=== PATIENT | female | born 1980 | race Caucasian/White ===

== ENCOUNTER 2020-12-30 12:22 | Observation (INO) | payer OTHER ==
[2020-12-30] MEDS ORDERED: NITROGLYCERIN OINT 1 INCH/GM PACKET TOPICAL STA (12:30)
[2020-12-30] MEDS ORDERED: SODIUM CHLORIDE 0.9% 500 ML 500 ML IV STA (12:30)
[2020-12-30] MEDS ORDERED: ASPIRIN 81 MG PO STA (12:30)
--- NOTE | 2020-12-30 12:45 | ED ---
General Adult HPI - General Stated complaint: chest pain Time Seen by Provider: 12/30/20 12:25 Source: patient, RN notes reviewed, old records reviewed - History of Present Illness Initial comments: This is a 40-year-old transgender female who presents emergency Department with a complaint of chest pain. Patient states his past history is positive for 3 heart attacks a passout and high blood pressure. Patient also has depression and anxiety and PTSD. Patient states the pain started a few hours ago and it radiates to his arm. Patient also states she somewhat short of breath. Patient states the pain started in the center of his chest and got better and then it's worse again. Patient denies any diaphoretic episode. Patient's headache patient denies numbness weakness per patient's abdominal pain. - Related Data Allergies Allergy/AdvReac Type Severity Reaction Status Date / Time Penicillins Allergy Unknown Verified 12/30/20 13:51 Childhood Review of Systems ROS Statement: Those systems with pertinent positive or pertinent negative responses have been documented in the HPI. ROS Other: All systems not noted in ROS Statement are negative. General Exam - General Exam Comments Initial Comments: GENERAL: Patient is well-developed and well-nourished. Patient is nontoxic and well- hydrated and is in mild distress. ENT: Neck is soft and supple. No significant lymphadenopathy is noted. Oropharynx is clear. Moist mucous membranes. Neck has full range of motion without eliciting any pain. EYES: The sclera were anicteric and conjunctiva were pink and moist. Extraocular movements were intact and pupils were equal round and reactive to light. Eyelids were unremarkable. PULMONARY: Unlabored respirations. Good breath sounds bilaterally. No audible rales rhonchi or wheezing was noted. CARDIOVASCULAR: There is a regular rate and rhythm without any murmurs gallops or rubs. ABDOMEN: Soft and nontender with normal bowel sounds. SKIN: Skin is clear with no lesions or rashes and otherwise unremarkable. NEUROLOGIC: Patient is alert and oriented x3. Cranial nerves II through XII are grossly intact. Motor and sensory are also intact. Normal speech, volume and content. Symmetrical smile. MUSCULOSKELETAL: Normal extremities with adequate strength and full range of motion. LYMPHATICS: No significant lymphadenopathy is noted PSYCHIATRIC: Normal psychiatric evaluation. Course Vital Signs 12/30/20 12/30/20 12:23 14:00 Temperature 97.6 F Pulse Rate 75 75 Respiratory 16 Rate Blood Pressure 126/80 119/76 O2 Sat by Pulse 97 Oximetry Medical Decision Making - Medical Decision Making EKG shows normal sinus rhythm at 73 bpm NJ interval 146 dresses 90 QT interval 380 QTC is 418. Patient's EKG shows no ST segment elevation or depression. Chest x-ray shows no acute abnormality. [facility] admitted the patient and wrote admitting orders. - Lab Data Result diagrams: 12/30/20 12:44 12/30/20 12:44 Lab Results 12/30/20 12/30/20 12/30/20 Range/Units 12:44 12:44 12:44 WBC 10.5 (3.8-10.6) k/uL RBC 5.01 (3.80-5.40) m/uL Hgb 15.2 (11.4-16.0) gm/dL Hct 44.4 (34.0-46.0) % MCV 88.5 (80.0-100.0) fL MCH 30.4 (25.0-35.0) pg MCHC 34.3 (31.0-37.0) g/dL RDW 12.3 (11.5-15.5) % Plt Count 220 (150-450) k/uL MPV 9.9 Neutrophils % 79 % Lymphocytes % 14 % Monocytes % 5 % Eosinophils % 1 % Basophils % 0 % Neutrophils # 8.2 H (1.3-7.7) k/uL Lymphocytes # 1.4 (1.0-4.8) k/uL Monocytes # 0.6 (0-1.0) k/uL Eosinophils # 0.1 (0-0.7) k/uL Basophils # 0.0 (0-0.2) k/uL PT 10.1 (9.0-12.0) sec INR 0.9 (<1.2) APTT 25.7 (22.0-30.0) sec Sodium 136 L (137-145) mmol/L Potassium 4.5 (3.5-5.1) mmol/L Chloride 105 (98-107) mmol/L Carbon Dioxide 20 L (22-30) mmol/L Anion Gap 11 mmol/L BUN 15 (7-17) mg/dL Creatinine 0.86 (0.52-1.04) mg/dL Est GFR (CKD-EPI)AfAm >90 (>60 ml/min/1.73 sqM) Est GFR (CKD-EPI)NonAf 84 (>60 ml/min/1.73 sqM) Glucose 93 (74-99) mg/dL Calcium 10.0 (8.4-10.2) mg/dL Magnesium 2.0 (1.6-2.3) mg/dL Total Bilirubin 0.6 (0.2-1.3) mg/dL AST 22 (14-36) U/L ALT 20 (4-34) U/L Alkaline Phosphatase 54 (38-126) U/L Troponin I (0.000-0.034) ng/mL Total Protein 7.0 (6.3-8.2) g/dL Albumin 4.1 (3.5-5.0) g/dL 12/30/20 Range/Units 12:44 WBC (3.8-10.6) k/uL RBC (3.80-5.40) m/uL Hgb (11.4-16.0) gm/dL Hct (34.0-46.0) % MCV (80.0-100.0) fL MCH (25.0-35.0) pg MCHC (31.0-37.0) g/dL RDW (11.5-15.5) % Plt Count (150-450) k/uL MPV Neutrophils % % Lymphocytes % % Monocytes % % Eosinophils % % Basophils % % Neutrophils # (1.3-7.7) k/uL Lymphocytes # (1.0-4.8) k/uL Monocytes # (0-1.0) k/uL Eosinophils # (0-0.7) k/uL Basophils # (0-0.2) k/uL PT (9.0-12.0) sec INR (<1.2) APTT (22.0-30.0) sec Sodium (137-145) mmol/L Potassium (3.5-5.1) mmol/L Chloride (98-107) mmol/L Carbon Dioxide (22-30) mmol/L Anion Gap mmol/L BUN (7-17) mg/dL Creatinine (0.52-1.04) mg/dL Est GFR (CKD-EPI)AfAm (>60 ml/min/1.73 sqM) Est GFR (CKD-EPI)NonAf (>60 ml/min/1.73 sqM) Glucose (74-99) mg/dL Calcium (8.4-10.2) mg/dL Magnesium (1.6-2.3) mg/dL Total Bilirubin (0.2-1.3) mg/dL AST (14-36) U/L ALT (4-34) U/L Alkaline Phosphatase (38-126) U/L Troponin I <0.012 (0.000-0.034) ng/mL Total Protein (6.3-8.2) g/dL Albumin (3.5-5.0) g/dL Disposition Clinical Impression: Unstable angina pectoris Disposition: ADMITTED IP TO THIS [facility] Referrals: Nonstaff,Physician [Primary Care Provider] - 1-2 days Time of Disposition: 14:31
[2020-12-30 12:57] LABS: Basophils % (A) 0 %; Eosinophils # (A) 0.1 k/uL (0-0.7); Eosinophils % (A) 1 %; HCT 44.4 % (34.0-46.0); HGB 15.2 gm/dL (11.4-16.0); Lymphocytes # (A) 1.4 k/uL (1.0-4.8); Lymphocytes % (A) 14 %; MCH 30.4 pg (25.0-35.0); MCHC 34.3 g/dL (31.0-37.0); MCV 88.5 fL (80.0-100.0); Mean Platelet Volume 9.9; Monocytes # (A) 0.6 k/uL (0-1.0); Monocytes % (A) 5 %; Neutrophils # (A) 8.2 k/uL (1.3-7.7); Neutrophils % (A) 79 %; Platelet Count 220 k/uL (150-450); RBC 5.01 m/uL (3.80-5.40); RDW 12.3 % (11.5-15.5); WBC 10.5 k/uL (3.8-10.6)
[2020-12-30 13:04] LABS: INR 0.9 (<1.2); Partial Thromboplastin Time 25.7 sec (22.0-30.0); Prothrombin Time 10.1 sec (9.0-12.0)
[2020-12-30 13:16] LABS: ALT 20 U/L (4-34); AST 22 U/L (14-36); African American GFR (CKD) >90 (>60 ml/min/1.73 sqM); Albumin 4.1 g/dL (3.5-5.0); Alkaline Phosphatase 54 U/L (38-126); Anion Gap 11 mmol/L; Blood Urea Nitrogen 15 mg/dL (7-17); Carbon Dioxide 20 mmol/L (22-30); Chloride 105 mmol/L (98-107); Glucose 93 mg/dL (74-99); Non-African American GFR(CKD) 84 (>60 ml/min/1.73 sqM); Potassium 4.5 mmol/L (3.5-5.1); Sodium 136 mmol/L (137-145); Total Bilirubin 0.6 mg/dL (0.2-1.3)
--- NOTE | 2020-12-30 13:43 | XR ---
EXAMINATION TYPE: XR chest 2V DATE OF EXAM: 12/30/2020 COMPARISON: NONE HISTORY: Chest pain and shortness of breath TECHNIQUE: Frontal and lateral views of the chest are obtained. FINDINGS: There is no focal air space opacity, pleural effusion, or pneumothorax seen. The cardiac silhouette size is upper limits of normal. Overlying EKG leads. The osseous structures are intact. IMPRESSION: No acute process.
[2020-12-30] MEDS ORDERED: ACETAMINOPHEN TAB 500 MG TAB PO STA (14:32)
[2020-12-30] MEDS ORDERED: NITROGLYCERIN SL TABS 0.4 MG TAB SUBLINGUAL PRN (14:32)
[2020-12-30] MEDS ORDERED: ACETAMINOPHEN TAB 325 MG TAB PO PRN (19:00)
[2020-12-30] MEDS: NITROGLYCERIN OINT 1 INCH/GM PACKET TOPICAL SCH (19:06)
[2020-12-30] MEDS: SPIRONOLACTONE 25 MG TAB PO SCH (20:59)
[2020-12-30] MEDS ORDERED: traZODone HCL 100 MG TAB PO SCH (21:00)
[2020-12-30] MEDS ORDERED: PANTOPRAZOLE 40 MG TABLET PO SCH (21:00)
[2020-12-30] MEDS ORDERED: PRAZOSIN 1 MG CAP PO SCH (21:00)
[2020-12-31] MEDS: NITROGLYCERIN OINT 1 INCH/GM PACKET TOPICAL SCH ×2 (00:04→06:20)
--- NOTE | 2020-12-31 01:22 | P.HPIM ---
History of Present Illness H&P Date: 12/30/20 Chief Complaint: Chest Pain Patient is a 40-year-old female with a known history of hypertension, history of KS x2, prior history of cardiac catheterization with nonobstructive CAD, was told coronary vasospasm, ADD/ADHD, anxiety/depression and PTSD and marijuana use presents to ER with complaints of chest pain. Patient states that she developed chest pain mainly in the mid retrosternal and epigastric region and felt very nauseated. Patient states her pain was radiating to her left arm associate with nausea. Patient felt very weak and leaned onto the floor. She developed chest pain again and states that she passed out for few seconds and also felt very diaphoretic.. She called her girlfriend and was brought to the ER. Denied any numbness or tingling. No focal weakness. No headache or dizziness or lightheadedness. No diarrhea. No fever no chills. No cough or sputum production. Denies any recent illnesses. Patient states that her pain is different from her heartburn and felt like previous heart attack. Chest x-ray showed no acute process. EKG showed normal sinus rhythm with no ST-T wave changes. Laboratory showed WBC 10.5 hemoglobin 15.1 platelets 220 Sodium 136 potassium 4.5 chloride 105 bicarb is 20 BUN 15 and creatinine 0.86 Troponin 0 0.012, liver enzymes are not elevated Review of Systems Constitutional: Patient denies any fever or chills . No generalized weakness or weight loss. Abdomen: Patient denied nausea vomiting and diarrhea and abdominal pain. Cardiovascular: Patient denies any chest pain or short of breath no palpitations. Respiratory: patient denied any cough or sputum production. No shortness of breath Neurologic: Patient denied any numbness or tingling headache. Musculoskeletal: Patient denies any complaints of joint swelling or deformity. Skin: Negative Psychiatric: Negative Endocrine: No heat or cold intolerance. No recent weight gain. Genitourinary: No dysuria or hematuria. All other 14 point ROS negative except the above Past Medical History Past Medical History: Hypertension, Myocardial Infarction ([place]) Last Myocardial Infarction Date:: april 2019 History of Any Multi-Drug Resistant Organisms: None Reported Past Surgical History: Heart Catheterization Additional Past Surgical History / Comment(s): Vasectomy Past Anesthesia/Blood Transfusion Reactions: No Reported Reaction Past Psychological History: ADD/ADHD, Anxiety, Depression, PTSD Smoking Status: Never smoker Past Alcohol Use History: None Reported Past Drug Use History: Marijuana Medications and Allergies Home Medications Medication Instructions Recorded Confirmed Type Dextroamphetamine/Amphetamine 15 mg PO DAILY 12/30/20 12/30/20 History [Adderall Xr] Esomeprazole Magnesium 40 mg PO HS 12/30/20 12/30/20 History Estradiol 4 mg PO BID 12/30/20 12/30/20 History FLUoxetine HCL [PROzac] 40 mg PO DAILY 12/30/20 12/30/20 History Fenofibrate Nanocrystallized 145 mg PO DAILY 12/30/20 12/30/20 History [Fenofibrate] Medroxyprogesterone Acetate 5 mg PO HS 12/30/20 12/30/20 History Prazosin HCl 1 mg PO HS 12/30/20 12/30/20 History Spironolactone 100 mg PO BID 12/30/20 12/30/20 History buPROPion HCL [Wellbutrin XL] 300 mg PO DAILY 12/30/20 12/30/20 History buPROPion XL [Wellbutrin XL] 150 mg PO DAILY 12/30/20 12/30/20 History traZODone HCL [Desyrel] 100 mg PO HS 12/30/20 12/30/20 History Allergies Allergy/AdvReac Type Severity Reaction Status Date / Time Penicillins Allergy Unknown Verified 12/30/20 15:50 Childhood Physical Exam Vitals: Vital Signs Temp Pulse Pulse Resp BP BP Pulse Ox 12/30/20 19:45 98 12/30/20 19:38 98.4 F 77 18 147/76 12/30/20 16:20 97.9 F 70 14 126/77 96 12/30/20 15:30 78 16 121/76 98 12/30/20 15:00 78 16 117/82 96 12/30/20 14:30 74 18 118/79 98 12/30/20 14:00 75 16 119/76 12/30/20 12:23 97.6 F 75 126/80 97 Intake and Output 12/30/20 12/30/20 12/30/20 06:59 14:59 22:59 Other: Weight 104.326 kg 104.326 kg PHYSICAL EXAMINATION: Patient is lying in the bed comfortably, no acute distress, awake alert and oriented.. HEENT: Normocephalic. Neck is supple. Pupils reactive. Nostrils clear. Oral cavity is moist. Neck reveals no JVD, carotid bruits, or thyromegaly. CHEST EXAMINATION: Trachea is central. Symmetrical expansion. Lung melchor clear to auscultation and percussion. CARDIAC: Normal S1, S2 with no gallops. No murmurs ABDOMEN: Soft. Bowel sounds normal. No organomegaly. No abdominal bruits. Extremities: reveal no edema. No clubbing or cyanosis Neurologically awake, alert, oriented x3 with well-coordinated movements. No focal deficits noted Skin: No rash or skin lesions. Psychiatric: Cooperative. Nonsuicidal Musculoskeletal: No joint swelling or deformity. Normal range of motion. Results CBC & Chem 7: 12/30/20 12:44 12/30/20 12:44 Labs: Abnormal Lab Results - Last 24 Hours (Table) 12/30/20 12/30/20 Range/Units 12:44 12:44 Neutrophils # 8.2 H (1.3-7.7) k/uL Sodium 136 L (137-145) mmol/L Carbon Dioxide 20 L (22-30) mmol/L Thrombosis Risk Factor Assmnt - DVT/VTE Prophylaxis DVT/VTE Prophylaxis: Pharmacologic Prophylaxis ordered - Choose All That Apply Any of the Below Risk Factors Present?: No Other Risk Factors: No Other congenital or acquired thrombophilia - If yes, enter type in comment: No Thrombosis Risk Factor Assessment Level: Very Low Risk Assessment and Plan Assessment: Atypical chest pain. Rule out ACS. History [place] x3 as per patient status post cardiac catheterization and was told coronary vasospasm Hypertension ADD/ADHD, anxiety/depression PTSD History of marijuana use DVT prophylaxis with heparin subcu Patient will be continued on telemetry monitoring and follow-up serial EKG and troponin x3. Continue with aspirin and lipid panel was ordered. Continue with home medications for anxiety/depression. Follow-up closely. Currently patient denied any active chest pain. Cardiology was consulted for evaluation.
[2020-12-31 06:14] VITALS: PULSE 65
[2020-12-31] MEDS ORDERED: HEPARIN SODIUM,PORCINE/PF 5,000 UNIT/0.5 ML SYRINGE SQ SCH (08:00)
[2020-12-31] MEDS ORDERED: FLUoxetine HCL 20 MG CAP PO SCH (09:00)
[2020-12-31] MEDS ORDERED: DEXTROAMPHETAMINE PO SCH (09:00)
[2020-12-31] MEDS ORDERED: buPROPion XL 300 MG TAB.ER.24H PO SCH (09:00)
[2020-12-31] MEDS ORDERED: buPROPion XL 150 MG TAB.ER.24H PO SCH (09:00)
[2020-12-31] MEDS ORDERED: ASPIRIN 325 MG TAB PO SCH (09:00)
[2020-12-31] MEDS ORDERED: FENOFIBRATE 160 MG TAB PO SCH (09:00)
[2020-12-31] MEDS ORDERED: AMPHETAMINE PO SCH (09:00)
[2020-12-31] MEDS ORDERED: METOPROLOL TARTRATE 12.5 MG TAB PO SCH (09:15)
[2020-12-31] MEDS: SPIRONOLACTONE 25 MG TAB PO SCH (09:27)
[2020-12-31 09:55] VITALS: BP 104/61; RESP 17; TEMP 97.5
[2020-12-31] MEDS ORDERED: ASPIRIN 81 MG PO SCH (10:00)
--- NOTE | 2020-12-31 12:02 | ECHOF ---
Referral Reason:Chest pain MEASUREMENTS -------- HEIGHT: 160.0 cm WEIGHT: 108.9 kg BP: RVIDd: 4.0 cm (< 3.3) IVSd: 1.1 cm (0.6 - 1.1) LVIDd: 4.6 cm (3.9 - 5.3) LVPWd: 1.1 cm (0.6 - 1.1) IVSs: 1.4 cm LVIDs: 3.4 cm LVPWs: 1.3 cm LA Diam: 3.1 cm (2.7 - 3.8) LAESV Index (A-L): 29.31 ml/m Ao Diam: 3.0 cm (2.0 - 3.7) AV Cusp: 2.1 cm (1.5 - 2.6) MV EXCURSION: 21.866 mm (> 18.000) MV EF SLOPE: 139 mm/s (70 - 150) EPSS: 0.2 cm MV E Jef: 0.81 m/s MV DecT: 187 ms MV A Jef: 0.73 m/s MV E/A Ratio: 1.10 RAP: 5.00 mmHg RVSP: 19.52 mmHg FINDINGS -------- Sinus rhythm. This was a technically adequate study. LV size, wall thickness and systolic function are normal, with an EF greater than 55%. The left jaclyn tricular size is normal. The right ventricle is normal in size. LA is midly dilated 29-33ml/m2. The right atrial size is normal. There is mild aortic valve sclerosis. There is no evidence of aortic regurgitation. Mild mitral annular calcification present. Mild mitral regurgitation is present. Mild tricuspid regurgitation present. Right ventricular systolic pressure is normal at < 35 mmHg. There is no pulmonic regurgitation present. Echo free space indicative of a pericardial fat pad. CONCLUSIONS -------- 1. LV size, wall thickness and systolic function are normal, with an EF greater than 55%. 2. The left ventricular size is normal. 3. The right ventricle is normal in size. 4. LA is midly dilated 29-33ml/m2. 5. The right atrial size is normal. 6. There is mild aortic valve sclerosis. 7. Mild mitral annular calcification present. 8. Mild mitral regurgitation is present. 9. Mild tricuspid regurgitation present. 10. Echo free space indicative of a pericardial fat pad. METAL MODEL MAKER: Marylou Fonseca RDCS
[2020-12-31 17:44] LABS: Chol/HDL Ratio 4.65 Ratio; HDL Cholesterol 41.9 mg/dL (40.00-60.00); LDL Cholesterol,Calculated 125.1 mg/dL (0.0-131.0)
--- NOTE | 2021-01-01 12:55 | CONS ---
CONSULTATION DATE OF SERVICE: 12/31/2020. This is a 40-year-old person who is a transgender and was admitted through the emergency room with an episode of chest pain that has since resolved. 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 He came here to meet a friend and separate from the friend and they were dividing their belongings and then he had an attack of anxiety, then had chest pain and came into the hospital. His troponins are normal. EKG is unremarkable. He is resting comfortably without symptoms. The patient has history of anxiety disorder. Indicates to me that he had a heart attack 3 times, details unavailable. EKG, however, is normal. There is no evidence of old DC. Echo also revealed good systolic function. The patient was asymptomatic, resting comfortably. PAST MEDICAL HISTORY: Was remarkable for post traumatic stress syndrome, depression, transgender situation. The patient has 4 children and he lives in [place]. She is visiting [place] with a friend. MEDICATIONS: Include Aldactone, medroxyprogesterone, estradiol, Adderall, and also aspirin 81 mg daily. Spironolactone 100 mg b.i.d. is on the list and Wellbutrin. ALLERGIES: HE IS ALLERGIC TO PENICILLIN. EXAMINATION: Blood pressure was 128/70. Pulse rate is 64. HEENT unremarkable. Fundus was not examined by me. Neck is supple. No JVD. I do not hear a carotid bruit. There is no thyromegaly. HEART exam reveals S1, S2 heard normally without a rub murmur or gallop. LUNGS are clear. ABDOMEN is soft, nontender. Lower EXTREMITIES reveal normal pulses. No edema. CENTRAL NERVOUS SYSTEM is normal. IMPRESSION: 1. Atypical chest pain. 2. Transgender status. 3. Anxiety disorder. 4. Depression. RECOMMENDATIONS: Patient's clinical picture does not suggest acute ischemic syndrome or CAD. However, I will perform a regular stress test. If this is normal, he will be discharged. Echo revealed good systolic function. The patient will go to [place] and follow up with his doctor if stress test is normal. MMODL / IJN: [id number] /
--- NOTE | 2021-01-01 14:40 | EST ---
EXERCISE STRESS AGE: 40 SEX: F HT: 5'11" WT: 230 lbs. PROTOCOL: Sarabjit STAGE: 4 DURATION OF EXERCISE: 9:30 HEART RATE REST: 69 BLOOD PRESSURE REST: 130/84 MAXIMUM HEART RATE ACHIEVED: 159 MAXIMUM BLOOD PRESSURE: 206/53 85% MPHR: 151 100% MPHR: 178 METS: 11.1 RESULTS: Baseline EKG revealed normal sinus rhythm without significant ST changes. Patient walked on standard Sarabjit protocol for 9 minutes and 30 seconds achieved a maximal heart rate of 159 beats per minute which is more than 85% of predicted maximal. He developed fatigue, shortness of breath but did not have angina or arrhythmia. EKG did not reveal any ST-segment changes to indicate ischemia. IMPRESSION: 1. Good exercise capacity. 2. Negative stress test with no evidence to suggest ischemia. 3. No anginal symptoms or any arrhythmia of significance was noted. TAWANA / FABRICIO: [id number] /
== END 2020-12-31 15:48 | disposition home or self-care (01) ==
LOC: EC 12:22 → 6NMEDSUR 14:32
PROVIDERS: ADMIT Internal Medicine; ATTEND Internal Medicine
DX: R07.2 Precordial pain (principal); R10.13 Epigastric pain; F64.0 Transsexualism; R11.0 Nausea; I25.10 Atherosclerotic heart disease of native coronary artery without angina pectoris; F32.9 Major depressive disorder, single episode, unspecified; F43.10 Post-traumatic stress disorder, unspecified; F90.9 Attention-deficit hyperactivity disorder, unspecified type; I10 Essential (primary) hypertension; F12.90 Cannabis use, unspecified, uncomplicated; F41.9 Anxiety disorder, unspecified; I25.2 Old myocardial infarction; Z79.899 Other long term (current) drug therapy; Z88.0 Allergy status to penicillin
CPT/HCPCS: 99285; 96360; 96361; 96372; 36415; 94760; 93005; 93017; 93306; 80061; 80053; 83735; 84484; 85025; 85610; 85730; 71046; G0378 ×2; J1644

== ENCOUNTER 2021-04-27 22:30 | Emergency (ER) | payer OTHER ==
[2021-04-27 22:58] VITALS: RESP 18
[2021-04-28 00:09] LABS: Appearance,Urine Clear (Clear); Bacteria,Urine Rare /hpf; Bilirubin,Urine Negative (Negative); Blood,Urine Negative (Negative); Color,Urine Yellow; Glucose,Urine (UA) Negative (Negative); Hyaline Casts,Urine 1 /lpf (0-2); Ketones,Urine Trace (Negative); Leukocyte Esterase,Urine Small (Negative); Mucus,Urine Rare /hpf; Nitrite,Urine Negative (Negative); PH, Urine 6.5 (5.0-8.0); Protein,Urine Negative (Negative); RBC,Urine 2 /hpf (0-5); Specific Gravity,Urine 1.024 (1.001-1.035); Squamous Epithelial Cell,Urine 3 /hpf (0-4); Urobilinogen,Urine <2.0 mg/dL (<2.0); WBC,Urine 29 /hpf (0-5)
[2021-04-28] MEDS ORDERED: SODIUM CHLORIDE 0.9% 1,000 ML IV STA (00:44)
[2021-04-28] MEDS ORDERED: ONDANSETRON 4 MG/2 ML VIAL IVP STA (00:59)
[2021-04-28] MEDS ORDERED: MORPHINE SULFATE 4 MG/ML SYRINGE IV STA (00:59)
--- NOTE | 2021-04-28 01:00 | ED ---
Female Urogenital HPI - General Chief complaint: Urogenital Stated complaint: Possible Kidney Stone/Lower Back Pain Time Seen by Provider: 04/28/21 00:43 Source: patient Mode of arrival: ambulatory - History of Present Illness Initial comments: This is a pleasant 40-year-old female who presents to emergency department complaining of right flank pain which started today. Pain is constant, has history kidney stones. Patient also has recently been exposed to HIV and is questioning whether this could be some damage to the liver or kidney due to these medications. Requesting HIV test. No nausea or vomiting. No hematuria. 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 No headache, no fever or chills, no changes in vision or hearing, no sore throat or difficulty with speech, no neck pain, no chest pain or shortness of breath, no nausea or vomiting, no changes in urination or bowel movements, no numbness or tingling, no extremity pain, no skin rashes or lesions. Note that the patient had an unprotected sexual encounter just over 2 weeks ago. This did include anal sex. Patient initially had negative HIV testing but was put on prophylaxis with triple therapy. Patient's primary care physician and urologist in [place] - Related Data Home Medications Medication Instructions Recorded Confirmed Dextroamphetamine/Amphetamine 15 mg PO DAILY 12/30/20 12/30/20 [Adderall Xr] Esomeprazole Magnesium 40 mg PO HS 12/30/20 12/30/20 Estradiol 4 mg PO BID 12/30/20 12/30/20 FLUoxetine HCL [PROzac] 40 mg PO DAILY 12/30/20 12/30/20 Fenofibrate Nanocrystallized 145 mg PO DAILY 12/30/20 12/30/20 [Fenofibrate] Medroxyprogesterone Acetate 5 mg PO HS 12/30/20 12/30/20 Prazosin HCl 1 mg PO HS 12/30/20 12/30/20 Spironolactone 100 mg PO BID 12/30/20 12/30/20 buPROPion HCL [Wellbutrin XL] 300 mg PO DAILY 12/30/20 12/30/20 buPROPion XL [Wellbutrin XL] 150 mg PO DAILY 12/30/20 12/30/20 traZODone HCL [Desyrel] 100 mg PO HS 12/30/20 12/30/20 Previous Rx's Medication Instructions Recorded Aspirin 81 mg PO DAILY 30 Days #30 tab 12/31/20 Metoprolol Tartrate [Lopressor] 12.5 mg PO BID 30 Days #60 tab 12/31/20 Nitroglycerin Sl Tabs [Nitrostat] 0.4 mg SUBLINGUAL Q5M PRN 30 Days 12/31/20 #30 tab Sulfamethox-Tmp 800-160Mg [Bactrim 1 tab PO Q12HR #14 tab 04/28/21 DS 800-160 mg] Allergies Allergy/AdvReac Type Severity Reaction Status Date / Time Penicillins Allergy Unknown Verified 04/27/21 22:57 Childhood Review of Systems ROS Statement: Those systems with pertinent positive or pertinent negative responses have been documented in the HPI. ROS Other: All systems not noted in ROS Statement are negative. Past Medical History Past Medical History: Hypertension, Myocardial Infarction ([place]) Last Myocardial Infarction Date:: april 2019 History of Any Multi-Drug Resistant Organisms: None Reported, MRSA Past Surgical History: Heart Catheterization Additional Past Surgical History / Comment(s): Vasectomy Past Anesthesia/Blood Transfusion Reactions: No Reported Reaction Past Psychological History: ADD/ADHD, Anxiety, Depression, PTSD Smoking Status: Never smoker Past Alcohol Use History: None Reported Past Drug Use History: Marijuana General Exam General appearance: alert, in distress Head exam: Present: atraumatic, normocephalic, normal inspection Eye exam: Present: normal appearance, PERRL, EOMI. Absent: scleral icterus, conjunctival injection, periorbital swelling ENT exam: Present: normal exam, mucous membranes moist Neck exam: Present: normal inspection. Absent: tenderness, meningismus, lymphadenopathy Respiratory exam: Present: normal lung sounds bilaterally. Absent: respiratory distress, wheezes, rales, rhonchi, stridor Cardiovascular Exam: Present: regular rate, normal rhythm, normal heart sounds. Absent: systolic murmur, diastolic murmur, rubs, gallop, clicks GI/Abdominal exam: Present: soft, normal bowel sounds. Absent: distended, tenderness, guarding, rebound, rigid External exam: Present: normal external exam. Absent: erythema, swelling, lesions, lacerations, ecchymosis Extremities exam: Present: normal inspection, full ROM, normal capillary refill. Absent: tenderness, pedal edema, joint swelling, calf tenderness Back exam: Present: normal inspection Neurological exam: Present: alert, oriented X3, CN II-XII intact Psychiatric exam: Present: normal affect, normal mood Skin exam: Present: warm, dry, intact, normal color. Absent: rash Course Vital Signs 04/27/21 22:52 Temperature 98.4 F Pulse Rate 92 Respiratory 18 Rate Blood Pressure 148/81 O2 Sat by Pulse 97 Oximetry - Reevaluation(s) Reevaluation #1: 04/28/21 02:24 Medical record is reviewed Symptoms are improved here in the emergency department Patient is informed of results and questions answered Patient in no distress Medical Decision Making - Medical Decision Making Follow-up with your regular physician as directed. Return to the ER immediately if any symptoms worsen, new symptoms arise, or any other problems develop. - Lab Data Result diagrams: 04/28/21 00:54 04/28/21 00:54 Lab Results 04/27/21 04/28/21 04/28/21 Range/Units 23:30 00:54 00:54 WBC 4.4 (3.8-10.6) k/uL RBC 4.80 (3.80-5.40) m/uL Hgb 15.0 (11.4-16.0) gm/dL Hct 44.0 (34.0-46.0) % MCV 91.6 (80.0-100.0) fL MCH 31.2 (25.0-35.0) pg MCHC 34.1 (31.0-37.0) g/dL RDW 13.7 (11.5-15.5) % Plt Count 142 L (150-450) k/uL MPV 10.9 Sodium 135 L (137-145) mmol/L Potassium 4.4 (3.5-5.1) mmol/L Chloride 104 (98-107) mmol/L Carbon Dioxide 22 (22-30) mmol/L Anion Gap 9 mmol/L BUN 12 (7-17) mg/dL Creatinine 0.95 (0.52-1.04) mg/dL Est GFR (CKD-EPI)AfAm 86 (>60 ml/min/1.73 sqM) Est GFR (CKD-EPI)NonAf 75 (>60 ml/min/1.73 sqM) Glucose 97 (74-99) mg/dL Calcium 9.3 (8.4-10.2) mg/dL Total Bilirubin 0.4 (0.2-1.3) mg/dL AST 27 (14-36) U/L ALT 26 (4-34) U/L Alkaline Phosphatase 59 (38-126) U/L Total Protein 7.3 (6.3-8.2) g/dL Albumin 4.3 (3.5-5.0) g/dL Lipase 28 (23-300) U/L Urine Color Yellow Urine Appearance Clear (Clear) Urine pH 6.5 (5.0-8.0) Ur Specific [place]obbins 1.024 (1.001-1.035) Urine Protein Negative (Negative) Urine Glucose (UA) Negative (Negative) Urine Ketones Trace H (Negative) Urine Blood Negative (Negative) Urine Nitrite Negative (Negative) Urine Bilirubin Negative (Negative) Urine Urobilinogen <2.0 (<2.0) mg/dL Ur Leukocyte Esterase Small H (Negative) Urine RBC 2 (0-5) /hpf Urine WBC 29 H (0-5) /hpf Urine WBC Clumps Rare H (None) /hpf Ur Squamous Epith Cells 3 (0-4) /hpf Urine Bacteria Rare H (None) /hpf Hyaline Casts 1 (0-2) /lpf Urine Mucus Rare H (None) /hpf Disposition Clinical Impression: Urinary tract infection Disposition: HOME SELF-CARE Condition: Good Instructions (If sedation given, give patient instructions): Urinary Tract Infection in Men (ED) Additional Instructions: Taking antibiotics as directed unless otherwise instructed. Follow-up with your regular physician as directed. Return to the ER immediately if any symptoms worsen, new symptoms arise, or any other problems develop. Prescriptions: Sulfamethox-Tmp 800-160Mg [Bactrim DS 800-160 mg] 1 tab PO Q12HR #14 tab Is patient prescribed a controlled substance at d/c from ED?: No Referrals: Kirit Landa MD [STAFF PHYSICIAN] - 1-2 days Time of Disposition: 02:27
[2021-04-28 01:30] LABS: Albumin 4.3 g/dL (3.5-5.0); Calcium 9.3 mg/dL (8.4-10.2); Potassium 4.4 mmol/L (3.5-5.1); Total Bilirubin 0.4 mg/dL (0.2-1.3); Total Protein 7.3 g/dL (6.3-8.2)
--- NOTE | 2021-04-28 01:30 | CT ---
EXAMINATION TYPE: CT abdomen pelvis wo con DATE OF EXAM: 04/28/2021 COMPARISON: None HISTORY: Right flank pain CT DLP: 1042.20 mGycm Automated exposure control for dose reduction was used. Images obtained from the diaphragm to the floor the pelvis with no contrast. Lung bases are clear There is no pleural effusion. Heart size is normal. There is no pericardial effusion. Liver spleen and stomach pancreas appear intact. The bile ducts are not dilated. Gallbladder appears normal. There is no adrenal mass. Kidneys show normal size and contour. There is no hydronephrosis. Ureters a re not dilated. There is no retroperitoneal adenopathy. Bladder distends smoothly. There is no inguin al hernia. There is no free fluid in the pelvis. There is mild prostate calcification. There is no ev idence of a pelvic mass. Appendix is posterior and appears normal. There is no evidence of a renal ca lculus. There is no mesenteric edema. There is no ascites or free air. There is no bowel obstruction. The lumbar vertebrae have normal spacing and alignment. Posterior elements are intact. There is no co mpression fracture. Hip joints are intact. IMPRESSION: No evidence of renal stone or obstruction. Normal appendix. No acute abnormality of the abdomen and p myriam.
[2021-04-28 01:52] LABS: MCH 31.2 pg (25.0-35.0); MCHC 34.1 g/dL (31.0-37.0); MCV 91.6 fL (80.0-100.0); Mean Platelet Volume 10.9; Platelet Count 142 k/uL (150-450); RDW 13.7 % (11.5-15.5); WBC 4.4 k/uL (3.8-10.6)
[2021-04-28] MEDS ORDERED: cefTRIAXone IN SWFI 1,000 MG/10 ML SYRINGE IVP STA (01:54)
[2021-04-28 02:47] VITALS: BP 127/74; PULSE 70; TEMP 98.1
[2021-04-28 05:23] LABS: Band Neutrophils % 4 %; Lymphocytes # (M) 0.84 k/uL (1.0-4.8); Monocytes # (M) 0.53 k/uL (0-1.0); Neutrophils % (M) 65 %; Nucleated Red Blood Cells 0 /100 WBC (0-0); Total Cells Counted 100
[2021-04-28 05:25] LABS: Large Platelets Present
[2021-04-28 13:48] LABS: HIV 2 AB Non-Reactive (Non-Reactive); HIV AB P24 Non-Reactive (Non-Reactive); HIV P24 AG Non-Reactive (Non-Reactive)
[2021-04-29 13:52] LABS: C. trachomatis,PCR Negative (Neg,Equiv); Chlamydia trachomatis Source Urine; N. gonorrhoeae,PCR Negative (Neg,Equiv); Neisseria Source Urine
== END 2021-04-28 02:47 | disposition home or self-care (01) ==
LOC: EC 22:30
DX: N39.0 Urinary tract infection, site not specified (principal); I21.9 Acute myocardial infarction, unspecified; I10 Essential (primary) hypertension; Z88.0 Allergy status to penicillin
CPT/HCPCS: 36415; 80053; 83690; 85025; 81001; 87491; 87591; 87086; 87390; 74176; 99284; 96374; 96375; 96361; J2270; J2405; J0696